=== PATIENT | male | born 1980 | race African-American/Black ===

== ENCOUNTER 2023-12-27 17:00 | Emergency (ER) | payer BC ==
[~2023-12-27] VITALS: Ht 170.2 cm; Wt 81.0 kg
[2023-12-27 17:07] VITALS: BP 135/69; PULSE 74; RESP 18; TEMP 98.2; O2SAT 99
[2023-12-27] MEDS ORDERED: CYCL5TAB MT (19:02)
[2023-12-27] MEDS ORDERED: IBUP-2030 MT (19:02)
== END 2023-12-27 19:27 | disposition home or self-care (01) ==
LOC: ER 17:00
DX: S80.212A Abrasion, left knee, initial encounter (principal); F19.90 Other psychoactive substance use, unspecified, uncomplicated; X58.XXXA Exposure to other specified factors, initial encounter; Y93.89 Activity, other specified; Y92.89 Other specified places as the place of occurrence of the external cause; Y99.8 Other external cause status
CPT/HCPCS: 99283